=== PATIENT | female | born 1965 | race Caucasian/White ===

== ENCOUNTER 2019-08-04 08:14 | Day surgery (SDC) | payer BC ==
[~2019-08-04] VITALS: Ht 157.5 cm; Wt 75.3 kg
[~2019-08-04 08:14] MED LIST: BUPR50TA PO; ESTR1DIS4 TOP; LEVO88TA24 PO
[2019-08-04] MEDS ORDERED: NS 1,000 ML IV ONE (08:30)
[2019-08-04] MEDS ORDERED: LIDOCAINE 2% INJ 100 MG/5 ML SDV (FOR ANES.) As Ordered ONE (09:30)
[2019-08-04] MEDS ORDERED: PROPOFOL 200 MG/20 ML VIAL As Ordered ONE (09:30)
--- NOTE | 2019-08-04 10:21 | ROOR ---
Patient Name: Eugenie Encarnacion Procedure Date: 08/04/2019 9:36 AM Date of : 1965 Age: 54 Room: [facility] Gender: Female Note Status: Finalized Procedure: Colonoscopy Indications: Screening for colorectal malignant neoplasm Providers: Kendrick Hilton MD Referring MD: TREVOR Macias Requesting Provider: Medicines: Monitored Anesthesia Care Complications: No immediate complications. Procedure: Pre-Anesthesia Assessment: - Prior to the procedure, a History and Physical was performed, and patient medications and allergies were reviewed. The patient is competent. The risks and benefits of the procedure and the sedation options and risks were discussed with the patient. All questions were answered and informed consent was obtained. Patient identification and proposed procedure were verified by the physician, the nurse and the anesthesiologist in the procedure room. Mental Status Examination: alert and oriented. Airway Examination: normal oropharyngeal airway and neck mobility. Respiratory Examination: clear to auscultation. CV Examination: normal. Prophylactic Antibiotics: The patient does not require prophylactic antibiotics. Prior Anticoagulants: The patient has taken no previous anticoagulant or antiplatelet agents. ASA Grade Assessment: II - A patient with mild systemic disease. After reviewing the risks and benefits, the patient was deemed in satisfactory condition to undergo the procedure. The anesthesia plan was to use monitored anesthesia care (MAC). Immediately prior to administration of medications, the patient was re-assessed for adequacy to receive sedatives. The heart rate, respiratory rate, oxygen saturations, blood pressure, adequacy of pulmonary ventilation, and response to care were monitored throughout the procedure. The physical status of the patient was re-assessed after the procedure. The Colonoscope was introduced through the anus and advanced to the terminal ileum, with identification of the appendiceal orifice and IC valve. The colonoscopy was performed without difficulty. The patient tolerated the procedure well. The quality of the bowel preparation was good. The terminal ileum, ileocecal valve, appendiceal orifice, and rectum were photographed. Scope insertion time was 3 minutes. Scope withdrawal time was 9 minutes. The total duration of the procedure was 12 minutes. Findings: The perianal and digital rectal examinations were normal. The terminal ileum appeared normal. Scattered small-mouthed diverticula were found from sigmoid to descending colon. There was no evidence of diverticular bleeding. Non-bleeding external and internal hemorrhoids were found during retroflexion. The hemorrhoids were medium-sized. The exam was otherwise without abnormality on direct and retroflexion views. Impression: - The examined portion of the ileum was normal. - Mild diverticulosis from sigmoid to descending colon. There was no evidence of diverticular bleeding. - Non-bleeding external and internal hemorrhoids. - The examination was otherwise normal on direct and retroflexion views. - No specimens collected. Recommendation: - Patient has a contact number available for emergencies. The signs and symptoms of potential delayed complications were discussed with the patient. Return to normal activities tomorrow. Written discharge instructions were provided to the patient. - High fiber diet. - Continue present medications. - Use fiber, for example Citrucel, Fibercon, Konsyl or Metamucil. - Repeat colonoscopy in 10 years for screening purposes. - Return to GI clinic if persistent symptoms or new symptoms. - Return to primary care physician. Kendrick Hilton MD Kendrick Hilton MD 08/04/2019 10:21:05 AM Electronically signed by Kendrick Hilton MD Number of Addenda: 0 Note Initiated On: 08/04/2019 9:36 AM Estimated Blood Loss: Estimated blood loss: none.
[2019-08-04 10:35] VITALS: BP 128/61
== END 2019-08-04 10:47 | disposition home or self-care (01) ==
LOC: M OPP 08:14
PROVIDERS: ATTEND Internal Medicine Gastroenterology
DX: Z12.11 Encounter for screening for malignant neoplasm of colon (principal); K64.8 Other hemorrhoids; K57.30 Diverticulosis of large intestine without perforation or abscess without bleeding; Z79.899 Other long term (current) drug therapy; Z80.0 Family history of malignant neoplasm of digestive organs; Z80.3 Family history of malignant neoplasm of breast; Z80.8 Family history of malignant neoplasm of other organs or systems

== ENCOUNTER → 2021-04-19 | Outpatient (CLI) | payer BC ==
[~2021-04-19] MED LIST changes: +BUPR-69 PO; -BUPR50TA PO
--- NOTE | 2021-04-19 20:30 | REPVR ---
PROCEDURE INFORMATION: Exam: MR Cervical Spine Without Contrast Exam date and time: 04/19/2021 6:56 PM Age: 56 years old Clinical indication: Neck pain; Additional info: Cervical ddd paresthesia of skin anethesia of skin TECHNIQUE: Imaging protocol: Multiplanar magnetic resonance images of the cervical spine without contrast. COMPARISON: No relevant prior studies available. FINDINGS: Vertebrae: Unremarkable. Spinal cord: Small syrinx at the C7 level measuring 1 mm in maximum diameter. Otherwise unremarkable. C1-C2: There are degenerative changes demonstrated in the atlantoaxial joint at C1-C2 with osteophytes and joint space narrowing. The transverse ligament is mildly thickened. C2-C3: No significant disc disease. No significant spinal stenosis. C3-C4: Diffusely bulging annulus with intervertebral osteophytes at C3-C4 effaces the ventral subarachnoid space without cord impingement. There is moderate bilateral foraminal stenosis secondary to osteophytic encroachment. C4-C5: Broad posterior disc protrusion at C4-C5 with intervertebral osteophytes effaces the ventral subarachnoid space without cord impingement. There is severe bilateral foraminal stenosis secondary to osteophytic encroachment. C5-C6: Broad posterior disc protrusion intervertebral osteophytes at C5-C6 effaces the ventral subarachnoid space without cord impingement. There is mild bilateral foraminal stenosis secondary to osteophytic encroachment. C6-C7: Broad posterior disc protrusion at C6-C7 effaces the ventral subarachnoid space without cord impingement. There is mild to moderate bilateral foraminal stenosis secondary to osteophytic encroachment. C7-T1: No significant disc disease. No significant spinal stenosis. Soft tissues: Unremarkable. Vertebral arteries: Expected flow voids in the vertebral arteries. IMPRESSION: 1. Multilevel degenerative spinal stenosis as described above. There are multilevel bilateral foraminal stenosis. Multilevel bulging annuli and or broad posterior disc protrusions from C3-C4 to C6-C7 without cord impingement. 2. Minimal syrinx at the C7 level. Electronically signed by: Marky Pineda On 04/19/2021 20:30:14 PM
== END ==
LOC: M RAD 17:43
PROVIDERS: ATTEND Physician Assistant
DX: M48.02 Spinal stenosis, cervical region (principal); M45.2 Ankylosing spondylitis of cervical region; M50.20 Other cervical disc displacement, unspecified cervical region

== ENCOUNTER → 2025-08-24 | Outpatient (REF) | payer BC ==
[2025-08-24 18:23] LABS: IRON (FE) 12.0 UG/DL (50-170); PERCENT SATURATION 3.2 % (13.2-45.0)
== END ==
LOC: M LAB REF 17:16
PROVIDERS: ATTEND Nurse Practitioner Family
DX: R53.83 Other fatigue (principal); D64.9 Anemia, unspecified